=== PATIENT | male | born 1950 | race African-American/Black ===

== ENCOUNTER → 2021-03-03 08:38 | Outpatient (CLI) | payer OTHER, SELFPAY ==
--- NOTE | ~2021-03-03 | CT_ITS ---
EXAMINATION: CT pelvis wo con DATE: 03/03/2021 08:58 INDICATION: Left lower quadrant pain. Left inguinal pain. History of hernia repair. TECHNIQUE: Computed tomography (CT) of the pelvis was performed without intravenous contrast. The dos e-length product was 608.67 mGy-cm. Automated exposure control and iterative reconstruction technique were employed. COMPARISON: None FINDINGS: No significant vascular abnormality. No lymphadenopathy. Nonobstructive bowel gas pattern. Bladder is unremarkable. No free air or free fluid. There are suspected changes of left inguinal amador ia repair. No evidence for recurrent hernia. No acute osseous abnormality. No focal lytic or blastic lesions. Moderate lower lumbar spondylosis. IMPRESSION: 1. No acute abnormality of the pelvis. Reviewed, dictated and finalized at location B.
== END ==
PROVIDERS: Visit Provider Surgery
DX: R10.32 Left lower quadrant pain (principal)
CPT/HCPCS: 72192

== ENCOUNTER 2024-10-17 06:55 | Outpatient (CLI) | payer OTHER, SELFPAY ==
--- NOTE | ~2024-10-17 | MR_ITS ---
MRI of the cervical spine Clinical History: Radiculopathy Technique: Axial T2-weighted and gradient images, and sagittal T1-weighted, T2-weighted, and STIR lai ges were acquired. Findings: No acute fracture identified. Probable minimal grade 1 anterolisthesis of C7 over T1. There is anterior and interbody fusion extending from C3 through C7. No suspicious bone marrow signal abno rmality seen. At C2-C3, there is no disc bulge or herniation. There is mild facet arthropathy with probable left ne ural foraminal narrowing. No right neural foraminal narrowing. No central canal stenosis or cord comp ression. At C3-C4, there is probable mild bilateral neural foraminal narrowing with mild bilateral facet arthr opathy. No canal stenosis or cord compression. No disc bulge or herniation evident. At C4-C5, there is probable mild bilateral neural foraminal narrowing with mild bilateral facet arthr opathy. No central canal stenosis or cord compression. No definite disc bulge seen. At C5-C6, there is no disc bulge or herniation. No central canal stenosis or cord compression. Probab le mild right neural foraminal narrowing. Left neural foramen preserved. At C6-C7, there is disc osteophyte complex, with bilateral neural foraminal narrowing. No central can al stenosis or cord compression. No abnormal signal seen in the spinal cord. Paravertebral soft tissues are otherwise unremarkable. Impression: Mild degenerative spondylosis, as above. Extensive anterior and interbody fusion, from C3 through C7. Reviewed, dictated and finalized at [facility]. SSMENT CONSULTANT Impression: Mild degenerative spondylosis, as above. Extensive anterior and interbody fusion, from C3 through C7.
--- OUTSIDE RECORDS SUMMARY | 2024-10-19 15:29 | XMS_ITS | Clinical Summary ---
Author Organization [facility] Address [address] [place] [address] Care Team Providers Care Landing Signal Officer Name Role Phone Unavailable Primary Care Provider Unavailabl e Source Comments [facility],non-owned Affiliates and Associated Physician Practices is amultiple site organization consisting of ambulatory clinics and hospital sitesin [place], [place], [place] and [place]. This disclosure is being madepursuant to the Care Everywhere program and may not contain all information available regarding this patient. Last updated 18.[facility] Health Encounters Date Type Department Care Team Description 10/11/2024 Telephone [place] [phone] [address] [address] Sherwin Mcdonald MD Appointment from Last 3 Months Social History Tobacco Use Types Packs/Day Years Used Date Smoking Tobacco: Never Assessed Sex and Gender Information Value Date Recorded Sex Assigned at Not on file Gender Identity Not on file Sexual Orientation Not on file Plan of Treatment Upcoming Encounters Date Type Department Care Team (Late st Contact Info) Description 10/23/2024 9:45 AM MACHINE CANDLE MOLDER Office Visit [place] [phone] [facility] [address] [place] [phone] [place] [address] [address] Health Maintenance Due Date Last Done Comments COLOGUARD (AGES 45-75) - COL ON CA SCREENING [address] COLONOGRAPHY - COLON CA SCREENING 1950 FIT - COLON CA SCREENING 1950 FLEX SIG - COLON CA SCREENING 1950 LIPID TESTING 1950 HEPATITIS C SCREENING 09/20/1969 DTAP/TDAP/TD VACCINES (1 - Tdap) 1970 PNEUMOCOCCAL VACCINE 50+ (1 of 1 - PCV) 2001 ZOSTER VACCINE (1 of 2) 2001 COVID-19 VACCINE ( - 2023-2 5 season) 2024 INFLUENZA VACCINE (#1) 2024 DEPRESSION SCREENING 09/27/2024 MEDICARE AWV ? CALENDAR YEAR 2024 Respiratory Syncytial Virus (RSV) Vaccine Pt: or over 60 yrs (1 - 1-dose 75+ series) 2026 COLONOSCOPY - COLON CA SCREENING 03/27/2034 03/27/20 Colorectal Cancer Screening 03/27/2034 HEPATITIS B VACCINE Aged Out No longe r eligible based on patient's age to complete this topic HIB VACCINE Aged Out No longer eligi ble based on patient's age to complete this topic HPV VACCINE Aged Out No longer eligi ble based on patient's age to complete this topic MENINGOCOCCAL (Group B) VACCINE Aged Out No longer eligible based on patient's age to complete this topic MENINGOCOCCAL VACCINE Aged Out No ethan melanie eligible based on patient's age to complete this topic Edward Sharma Personal/Family Self 1950
--- OUTSIDE RECORDS SUMMARY | 2024-10-19 15:29 | XMS_ITS | Encounter Summary ---
Author Organization [facility] Address [address] [place] [address] Care Team Providers Care Safety Leader Name Role Phone Daniel Jeffers DO Primary Care Provider [phone] Reason for Visit * Reason Onset Date Comments Hematuria 05/16/2022 Spoke w/Consuelo at Dr. Ankur Mclain's exchange Encounter Details Date Type Department Care Team (Late st Contact Info) Description 05/16/2022 Telephone [facility] Admitting [address] [place] [address] Rafael Kim MD NO ADDRESS ON FILE Hematuria (Spoke w/Consuelo at Dr. Ankur Mclain's exchange) Social History Tobacco Use Types Packs/Day Years Used Date Smoking Tobacco: Never Smokeless Tobacco: Never Alcohol Use Standard Drinks/Week Comments Not Currently 1 (1 standard drink = 0.6 oz pur e alcohol) Education Answer Date Recorded What is the highest level of school you have completed or the highest degree you have received? 9th grade 05/15/2022 Sex and Gender Information Value Date Recorded Sex Assigned at Not on file Legal Sex Male 1:09 PM WORK STUDY STUDENT Gender Identity Not on file Sexual Orientation Not on file COVID-19 Exposure Response Date Recorded In the last 10 days, have yo u been in contact with someone who was confirmed or suspected to have Coronavirus/COVID-19? No / Unsure 05/19/2022 6:02 PM CDT documented as of this encounter Plan of Treatment Not on file documented as of this encounter Visit Diagnoses Not on filedocumented in this encounter Care Teams Safety Leader Relationship Specialty Start Date End Date Daniel Jeffers DO [address] [phone] PCP - General Family Practice 04/01/22 documented as of this encounter
--- OUTSIDE RECORDS SUMMARY | 2024-10-19 15:29 | XMS_ITS | Patient Health Summary ---
Author Organization [facility] Address [address] [place] [address] Care Team Providers Care Technology Program Manager Name Role Phone Unavailable Primary Care Provider Unavailabl e Note from [facility],non-owned Affiliates and Associated Physician Practices is amultiple site organization consisting of ambulatory clinics and hospital sitesin [place], [place], [place] and [place]. This disclosure is being madepursuant to the Care Everywhere program and may not contain all information available regarding this patient. Last updated 18.[facility] Social History Tobacco Use Types Packs/Day Years Used Date Smoking Tobacco: Never Assessed Sex and Gender Information Value Date Recorded Sex Assigned at Not on file Gender Identity Not on file Sexual Orientation Not on file Procedures * XR CERVICAL SPINE 2 OR 3VW(Performed 05/16/2022) Results * XR Cervical Spine 2 or 3Vw (05/16/2022 11:45 AM CDT) Anatomical Region Laterality Modality Spine Other Historical Provider MD ROBIN Lozano ORDERABLES
--- OUTSIDE RECORDS SUMMARY | 2024-10-19 15:29 | XMS_ITS | Clinical Summary ---
Author Organization [facility] Address [facility] [place] [address] Care Team Providers Care Sports Attorney Name Role Phone [facility], Juan Luis Colunga Primary Care Pro vider Allergies Active Allergy Reactions Criticality Noted Date Comments Penicillins Rash Medium 03/26/1997 Medications allopurinoL (ZYLOPRIM) 300 mg tablet Take 1 tablet (300 mg total) by mouth 08/19/2024 Active amLODIPine-henna zepriL (LOTREL) 10-20 mg per capsule Take 1 capsule by mouth daily 09/06/2024 Active citalopram (CeleXA) 40 mg tablet Take 1 tablet (40 mg total) by mouth daily 10/02/2021 Active Hospital, Clinic, or Other Facility Administered Medication Ordered Dose Route Frequency Start Date End Date Status lidocaine (XYLOCAINE) 10 mg/mL (1 %) injection 3 mLIndications:Admini stration of Local Anesthesia 3 mL One-Time Injection 09/26/2024 4 Ended triamcinolone (KENALOG) 40 mg/mL injection 40 mgIndications:Primar y osteoarthritis of left knee 40 mg intra-artic One-Time Injection 09/26/2024 4 Ended Active Problems No known active problems Encounters Date Type Department Care Team Description 09/26/2024 2:00 PM AIRCONDITIONING ENGINEER Office Visit [facility] Medical Group Orthopedics and Sports Medicine [address] [place] [phone] Bethel Isidro MD Primary osteoarthritis of left knee (Primary Dx); Degenerative tear of left medial meniscus 09/26/2024 1:37 PM AIRCONDITIONING ENGINEER - 09/26/2024 11:59 PM AIRCONDITIONING ENGINEER Hospital Encounter [facility] [address] [place] [address] Primary osteoarthritis of left knee Discharge Disposition: Discharge to home or self care from Last 3 Months Surgical History Surgery Date Site/Laterality Comments BACK SURGERY SINUS SURGERY X4 HERNIA REPAIR X2 Medical History Medical History Date Comments Hypertension Gout Depression Hypercholesteremia Osteoarthritis Family History Medical History Relation Name Comments Diabetes Father Gout Father Arthritis Mother Relation Name Status Comments Father Mother Social History Tobacco Use Types Packs/Day Years Used Date Smoking Tobacco: Never Assessed Sex and Gender Information Value Date Recorded Sex Assigned at Not on file Legal Sex Male 12:24 PM AIRCONDITIONING ENGINEER Gender Identity Not on file Sexual Orientation Not on file Occupation Industry Job Start Date Job End Date retired Not on file Not on file Not on file Obstetrics History Last Filed Vital Signs Vital Sign Reading Time Taken Comments Blood Pressure 148/82 06/21/2019 7:28 AM CDT Pulse 62 06/21/2019 7:28 AM CDT Temperature - - Respiratory Rate 18 06/21/2019 7:28 AM CDT Oxygen Saturation 100% 06/21/2019 7:28 AM CDT Inhaled Oxygen Concentration - - Weight 106.6 kg (235 lb) 09/26/2024 2:21 PM AIRCONDITIONING ENGINEER Height 188 cm (6' 2 ) 09/26/2024 2:21 PM AIRCONDITIONING ENGINEER Body Mass Index 30.17 09/26/2024 2:21 PM AIRCONDITIONING ENGINEER Plan of Treatment Health Maintenance Due Date Last Done Comments Colon Cancer Screening-Colonoscopy 1950 Depression Screening 1950 Fall Risk Assessment 1950 Hepatitis C Screening 1950 Prostate Cancer Screening-PSA 1951 Hepatitis B Screening 1969 Abdominal Aortic Aneurysm (A AA) Screen 2016 Well Visit 65+ 2016 Influenza Vaccine (#1) 2024 DTaP/Tdap/Td Vaccine (3 - Td or Tdap) 04/24/2034, 07/11/2013 Zoster Vaccine Completed 12/16/2021, 08/28, 08/08/2013 Pneumococcal vaccine 65+ Completed 03/24/2022, 11/26 Procedures Procedure Name Priority Date/Time Associated Diagnosis Comments [place] ARTHROCENTESIS ASPIR&/INJ MAJOR JT/BURSA W/O US Routine 09/26/2024 2:00 PM AIRCONDITIONING ENGINEER Primary osteoarthritis of left knee XR KNEE LEFT 3 VIEWS Schedule Routine, Read Routine (OP Routine) 09/26/2024 1:42 PM AIRCONDITIONING ENGINEER Primary osteoarthritis of left knee from Last 3 Months Results * [place] ARTHROCENTESIS ASPIR&/INJ MAJOR JT/BURSA W/O US (09/26/2024 2:00 PM AIRCONDITIONING ENGINEER) Narrative Bethel Isidro MD - 09/26/2024 2:00 PM AIRCONDITIONING ENGINEER Bethel Isidro MD ? 09/26/2024 ??2:12 PM Large Joint (Hip, Knee, Shoulder) Injection: L knee Performed by: Bethel Isidro MD Authorized by: Bethel Isidro MD ?? Large Joint Injection/Aspiration: ??Consent Given by: ??Patient ??Timeout: prior to procedure the correct patient, procedure, and site was verified ?Verbal consent obtained: Yes ?? Supporting Documentation: ??Indications: ??Pain Procedure Details: ??Location: ??Knee ??Site: ??L knee ??Prep: patient was prepped and draped in usual sterile fashion ?Needle Size: ??18 G ??Approach: ??Superior lateral ??Medications: ??3 mL lidocaine 10 mg/mL (1 %); 40 mg triamcinolone 40 mg/mL ??Patient tolerance: ??Patient tolerated the procedure well with no immediate complications us Bethel Isidro MD IN CLINIC/BEDSIDE ORDERABLES Final Result * XR Knee Left 3 Views (09/26/2024 1:42 PM AIRCONDITIONING ENGINEER) Anatomical Region Laterality Modality Lower Extremities, Knee Left Computed Radiography 09/26/2024 1:43 PM AIRCONDITIONING ENGINEER Narrative 09/26/2024 1:44 PM AIRCONDITIONING ENGINEER EXAM DESCRIPTION: ?? XR KNEE LEFT 3 VIEWS REASON FOR STUDY: ?? Chronic left knee pain COMPARISON: ??None. FINDINGS: Three views of the left knee are reviewed. ??These images reveal no acute fractures or dislocations. ??There is marked loss of medial joint space with associated slight varus malalignment of the knee joint. ??There are small tibiofemoral and patellofemoral osteophytes. IMPRESSION: ??DJD left knee with moderate to severe medial compartment involvement. THIS IS AN ELECTRONICALLY VERIFIED FINAL REPORT 09/26/2024 1:44 PM - Electronically signed by ??Bethel CHONG D: ??09/26/2024 1:44 PM T: Report ID: [id number] Reading Location: ??[place] [address] Procedure Note Bethel Isidro MD - 09/26/2024 EXAM DESCRIPTION: XR KNEE LEFT 3 VIEWS REASON FOR STUDY: Chronic left knee pain COMPARISON: None. FINDINGS: Three views of the left knee are reviewed. These images reveal no acute fractures or dislocations. There is marked loss of medial joint spacewith associated slight varus malalignment of the knee joint. There are small tibiofemoral and patellofemoral osteophytes. IMPRESSION: DJD left knee with moderate to severe medial compartment involvement. THIS IS AN ELECTRONICALLY VERIFIED FINAL REPORT 09/26/2024 1:44 PM - Electronically signed by Bethel CHONG T: Report ID: [id number] Reading Location: [place] [address] Bethel Isidro MD IMG XR PROCEDURES Final Resu lt from Last 3 Months Insurance [facility] CHOICE MEDICARE [place] Care Teams Sports Attorney Relationship Specialty Start Date End Date [facility], Juan Luis Colunga [address] [place] [id number] PCP - General Genetics 07/03/24
--- OUTSIDE RECORDS SUMMARY | 2024-10-19 15:29 | XMS_ITS | Referral Summary ---
Author Organization [facility] Address [facility] [place] [address] Care Team Providers Care Pipe Covering Molder Name Role Phone [facility], Juan Luis Colunga Primary Care Pro vider Encounters Date Type Department Care Team Description 09/26/2024 1:37 PM BRAILLE TEACHER - 09/26/2024 11:59 PM BRAILLE TEACHER Hospital Encounter [facility] [address] [place] [address] Primary osteoarthritis of left knee Discharge Disposition: Discharge to home or self care 09/26/2024 2:00 PM BRAILLE TEACHER Office Visit [facility] Medical Group Orthopedics and Sports Medicine [facility] [facility] [address] [place] [address] Bethel Isidro MD Primary osteoarthritis of left knee (Primary Dx); Degenerative tear of left medial meniscus from Last 3 Months Allergies Active Allergy Reactions Criticality Noted Date [...] Ended Active Problems No known active problems Social History Tobacco Use Types Packs/Day Years Used Date Smoking Tobacco: Never Assessed Sex and Gender Information Value Date Recorded Sex Assigned at Not on file Legal Sex Male 12:24 PM BRAILLE TEACHER Gender Identity Not on file Sexual Orientation Not on file Occupation Industry Job Start Date Job End Date retired Not on file Not on file Not on file Last Filed Vital Signs Vital Sign Reading Time Taken Comments Blood Pressure 148/82 06/21/2019 7:28 AM CDT Pulse 62 06/21/2019 7:28 AM CDT Temperature - - Respiratory Rate 18 06/21/2019 7:28 AM CDT Oxygen Saturation 100% 06/21/2019 7:28 AM CDT Inhaled Oxygen Concentration - - Weight 106.6 kg (235 lb) 09/26/2024 2:21 PM BRAILLE TEACHER Height 188 cm (6' 2 ) 09/26/2024 2:21 PM BRAILLE TEACHER Body Mass Index 30.17 09/26/2024 2:21 PM BRAILLE TEACHER Plan of Treatment Not on file Procedures Procedure Name Priority Date/Time Associated Diagnosis Comments [place] ARTHROCENTESIS ASPIR&/INJ MAJOR JT/BURSA W/O US Routine 09/26/2024 2:00 PM BRAILLE TEACHER Primary osteoarthritis of left knee XR KNEE LEFT 3 VIEWS Schedule Routine, Read Routine (OP Routine) 09/26/2024 1:42 PM BRAILLE TEACHER Primary osteoarthritis of left knee from Last 3 Months Results * CA ARTHROCENTESIS ASPIR&/INJ MAJOR JT/BURSA W/O US (09/26/2024 2:00 PM BRAILLE TEACHER) Narrative Bethel Isidro MD - 09/26/2024 2:00 PM BRAILLE TEACHER Bethel Isidro MD ? 09/26/2024 ??2:12 PM [...] Knee Left 3 Views (09/26/2024 1:42 PM BRAILLE TEACHER) Anatomical Region Laterality Modality Lower Extremities, Knee Left Computed Radiography 09/26/2024 1:43 PM BRAILLE TEACHER Narrative 09/26/2024 1:44 PM BRAILLE TEACHER EXAM DESCRIPTION: ?? XR KNEE LEFT 3 [...] 1:44 PM - Electronically signed by ??Bethel Isidro D: ??09/26/2024 1:44 PM T: Report ID: [id number] Reading Location: ??[place] [address] Procedure Note Bethel Isidro MD - 09/26/2024 [...] signed by Bethel CHONG T: Report ID: [id number] Reading Location: [place] [address] Bethel Isidro MD IMG XR PROCEDURES Final Resu lt from Last 3 Months Insurance [facility] MEDICARE [place]ICARE [place] Member Subscriber Plan / Payer (Ef fective 1998-Present) Name:Edward Sharma Relation to Subscriber:Self Name:Edward Sharma Payer ID:[id number] Group ID:Not on file Type:OTHER GOVERNMENT Address: [facility] [address] [address] [place] [facility] Care Teams Pipe Covering Molder Relationship Specialty Start Date End Date [facility], Juan Luis Colunga [address] [place] [address] PCP - General Genetics 07/03/24
--- OUTSIDE RECORDS SUMMARY | 2024-10-19 15:29 | XMS_ITS | Referral Summary ---
Author Organization [facility] Address [address] [facility] [place] [address] Care Team Providers Care Hollow Core Door Frame Assembler Name Role Phone Unavailable Primary Care Provider Unavailabl e Source Comments [facility],non-owned Affiliates and Associated Physician Practices is amultiple site organization consisting of ambulatory clinics and hospital sitesin [place], [place], [place] and [place]. This disclosure is being madepursuant to the Care Everywhere program and may not contain all information available regarding this patient. Last updated 18.[facility] Health Encounters Date Type Department Care Team Description 10/11/2024 Telephone [place] [phone] [facility] [address] [place] [phone] Sherwin Mcdonald MD Appointment from Last 3 Months Social History Tobacco Use Types Packs/Day Years Used Date Smoking Tobacco: Never Assessed Sex and Gender Information Value Date Recorded Sex Assigned at Not on file Gender Identity Not on file Sexual Orientation Not on file Plan of Treatment Upcoming Encounters Date Type Department Care Team (Late st Contact Info) Description 10/23/2024 9:45 AM MANAGER TRUST Office Visit [facility] [place] [phone] [facility] [address] [place] [phone] [place] [address] [facility] [address] [place] [id number] Edward Sharma Personal/Family Self 1950
--- OUTSIDE RECORDS SUMMARY | 2024-10-19 15:29 | XMS_ITS | Clinical Summary ---
Author Organization [facility] Address [address] [place] [address] Care Team Providers Care Photoengraver Name Role Phone Ramseycindy Daniel CROOK Primary Care Provider [phone] Allergies Active Allergy Reactions Criticality Noted Date Comments Gabapentin Dizziness Low 12/02/2021 [place] light headed and dizzy Penicillins Rash,Unknown Low 03/26/1997 Medications citalopram (CeleXA) 40 mg tablet Take 40 mg by mouth daily. 10/02/2021 Active cholecalciferol , Vitamin D3, 50 mcg (2,000 unit) Tablet Take 2,000 Units by mouth daily. 09/23/2021 Active atorvastatin (LIPITOR) 80 mg tablet Take 40 mg by mouth daily with supper. 09/09/2021 Active amLODIPine-henna zepril (LOTREL) 5-20 mg capsule Take 1 Capsule by mouth daily. 09/09/2021 Active sildenafiL (VIAGRA) 100 mg tablet Take 100 mg by mouth 1 time daily as needed. 03/13/2022 Active allopurinoL (ZYLOPRIM) 300 mg tablet Take 300 mg by mouth daily. Active acetaminophen (TYLENOL) 500 mg tablet Take 1,000 mg by mouth 2 times daily as needed. Active tamsulosin (FLOMAX) 0.4 mg capsule Take 1 Capsule (0.4 mg) by mouth daily after supper. 30 Capsule 1 05/18/2022 2:25 PM CDT 05/18/2022 Active polyethylene glycol 3350 (MIRALAX) 17 gram/dose Powder Dissolve 1 Capful (17 Grams) in 8 ounces of liquid and take by mouth once daily as needed for Constipation. 510 Gram 05/18/2022 2:25 PM CDT 05/18/2022 Active Active Problems Problem Noted Date Diagnosed Date Hypotension due to medication 05/18/2022 Status post cervical spinal fusion 05/16/2022 Spinal stenosis in cervical region 12/02/2021 Cervical spondylosis with radiculopathy 12/03/19 Family History Medical History Relation Name Comments Hypertension Maternal Grandfather Diabetes Maternal Grandmother Diabetes Mother Hypertension Mother Relation Name Status Comments Maternal Grandfather Maternal Grandmother Mother Social History Tobacco Use Types Packs/Day Years Used Date Smoking Tobacco: Never Smokeless Tobacco: Never Tobacco Cessation:Counseling Given: Not Answered Alcohol Use Standard Drinks/Week Comments Not Currently 1 (1 standard drink = 0.6 oz pur e alcohol) Education Answer Date Recorded What is the highest level of school you have completed or the highest degree you have received? 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 Gender Identity Not on file Sexual Orientation Not on file Last Filed Vital Signs Vital Sign Reading Time Taken Comments Blood Pressure 148/90 11/06/2022 9:11 AM PROJECTION TECHNICIAN Pulse 54 05/24/2022 8:37 AM CDT Temperature 36.2 ??C (97.2 ??F) 05/24/2022 5:19 AM CD T Respiratory Rate 20 05/24/2022 8:37 AM CDT Oxygen Saturation 98% 05/24/2022 8:37 AM CDT Inhaled Oxygen Concentration - - Weight 98 kg (216 lb) 05/12/2023 9:06 AM CDT Height 188 cm (6' 2 ) 05/12/2023 9:06 AM CDT Body Mass Index 27.73 05/12/2023 9:06 AM CDT Plan of Treatment Health Maintenance Due Date Last Done Comments COLORECTAL SCREENING 1996 Colorectal Cancer Screening 1996 FIT-DNA Q 3 years 1996 FIT/FOBT Q 1 year 1996 Flex Sig/CT Colonography Q 5 years 1996 DTAP/TDAP/TD VACCINES (2 - T d or Tdap) 07/11/2023 07/11/2013 INFLUENZA VACCINE (#1) 2024 RSV VACCINE (60+ or ) (1 - 1-dose 75+ series) 2026 ZOSTER VACCINE Completed 12/16/2021, 08/28, 08/08/2013 PNEUMOCOCCAL VACCINE 65+ YEARS Completed 03/24/2022 , 12/22/2021 Medical Devices Implanted Type Area Soil Fertility Extension Specialist Device Identifier Shelf Expiration Date Model / Serial / Lot Vitoss Foam Pack Ba2x 5ml - Sna Implanted:Qty : 1 on 05/15/2022 by Sherwin Mcdonald [facility] at [facility] Biological N/A: Spine Cervical Anterior [employer] SPINE 06/24/2022 / NA / [id number] Description:ASHLEE REQ#[id number] Hemostatic Surgiflo 8ml W/ Thrombin 2994 - Sna Implanted:Qty : 1 on 05/15/2022 by Sherwin Mcdonald MD at [facility] Hemostatic N/A: Spine Cervical Anterior [employer] 06/26/2023 2994 / NA / [id number] Hemostatic Surgiflo 8ml W/ Thrombin 2994 - [id number] Implanted:Qty : 1 on 05/15/2022 by Sherwin Mcdonald MD at [facility] Hemostatic N/A: Spine Cervical Anterior [employer] 06/26/2023 2994 / / [id number] Plate Aviator 4lvl 68mm [id number] - [id number] Implanted:Qty : 1 on 05/15/2022 by Sherwin Mcdonald MD at [facility] Plate N/A: Spine Cervical Anterior [employer]ICE- SPINE [id number] / / Description:load no: 230 224 04 sterilized: [id number] Screw [address] 4.0x18mm [id number] - [id number] Implanted:Qty : 6 on 05/15/2022 by Sherwin Mcdonald MD at [facility] Screw N/A: Spine Cervical Anterior [employer] SPINE [id number] / / Description:load no: 230 224 04 sterilized: [id number] Screw Avtr Fa St 4.0x16mm [id number] - [id number] Implanted:Qty : 2 on 05/15/2022 by Sherwin Mcdonald MD at [facility] Screw N/A: Spine Cervical Anterior [employer]ICE[employer] SPINE [id number] / / Description:load no: 230 224 04 sterilized: [id number] Screw [address]tr [address] 4.0x16mm [id number] - [id number] Implanted:Qty : 2 on 05/15/2022 by Sherwin Mcdonald MD at [facility] Screw N/A: Spine Cervical Anterior [employer]ICE[employer] SPINE [id number] / / Spacer Avs As 14x16 6mm 4d [id number] - [id number] Implanted:Qty : 2 on 05/15/2022 by Sherwin Mcdonald MD at [facility] Spacer N/A: Spine Cervical Anterior [employer] SPINE [id number] / / Description:load no: 230 224 04 sterilized: [id number] Spacer Avs As 14x16 7mm 4d [id number] - [id number] Implanted:Qty : 2 on 05/15/2022 by Sherwin Mcdonald MD at [facility] Spacer N/A: Spine Cervical Anterior [employer] SPINE [id number] / / Description:load no: 230 224 04 sterilized: [id number] Insurance [facility] MCR RX MEDIMPACT Member Subscriber Plan / Payer (Ef fective 2022-Present) Name:Edward Sharma Relation to Subscriber:Self Name:Edward Sharma Subscriber ID:Not on file Payer ID:Not on file Group ID:[id number] Type:RX Medicare Part D Address: [facility] [place] RX TRAN PLANS (INTERNAL) [facility] Advance Directives For more information, please contact: [phone] * Full Code (Latest Code Status on File) Date Activated Date Inactivated Comments 05/15/2022 9:44 PM 05/18/2022 5:00 PM Care Teams Photoengraver Relationship Specialty Start Date End Date Daniel Jeffers DO [address] [address] PCP - General Family Practice 04/01/22
== END 2024-10-17 06:56 | disposition home or self-care (01) ==
PROVIDERS: PCP Family Medicine; Visit Provider Family Medicine
DX: M47.892 Other spondylosis, cervical region (principal); M43.22 Fusion of spine, cervical region
CPT/HCPCS: 72141